=== PATIENT | female | born 1950 | race Caucasian/White ===

== ENCOUNTER → 2016-12-31 | Outpatient (CLI) | payer BC ==
--- NOTE | ~2016-12-31 | BD1 ---
[facility] A Service of [facility] & [facility] RADIOLOGY TEXT RESULTS PATIENT: CALEB CANADA LOCATION: [facility] : 52 UNIT #: [id number] AGE: [address]: Julianne Newton MD SEX: F ORDER DR: [id number] [address] [address] [id number] O MR#: [id number] Acc #: [id number] NAME: CALEB CANADA : 1950 SEX: F STUDY DATE/TIME: 12/31/2016 8:47 UNIT: [facility] ROOM: STUDY DESCRIPTION: Dexa Bone Dens 1+ Site Attending Physician: Julianne Newton M.D. Referring Physician: Julianne Newton M.D. Ordering Physician: Julianne Newton M.D. Primary Care Physician: Julianne Newton M.D. MEDICAL IMAGING REPORT This report is preliminary unless electronic signature is present. EXAM DXA scan, 12/31/2016. HISTORY Status post menopause with no hormone replacement therapy. Osteopenia. Hypertension with blood pressure medication for 30 years. Fracture of the left foot in the last 10 years. FINDINGS Bone mineral density in the lumbar spine from L1-L4 is 1.126 g/cm2 which is 0.4 standard deviations below the mean when compared to the young adult reference population which is within the range of normal. This is 1 standard deviation above the mean when compared to the age-matched population. Bone mineral density in the left femoral neck was 0.845 g/cm2 which is 1.4 standard deviations below the mean when compared to the young adult reference population which is characteristic of osteopenia. This is 0 standard deviations from the mean when compared to the age-matched population. Bone mineral density in the right femoral neck was 0.891 g/cm2 which is 1.1 standard deviations below the mean when compared to the young adult reference population which is characteristic of osteopenia. This is 0.3 standard deviations above the mean when compared to the age-matched population. IMPRESSION Bone mineral density in the lumbar spine within the range of normal and within the hips bilaterally characteristic of osteopenia. STS. [facility] A Service of [facility] & [facility] RADIOLOGY TEXT RESULTS PATIENT: CALEB CANADA LOCATION: [facility] : 52 UNIT #: [id number] AGE: [address]: Julianne Newton MD SEX: F ORDER DR: Dictated by... Brennon Cruz M.D. THIS IS AN ELECTRONICALLY VERIFIED REPORT Brennon Cruz M.D. at 12/31/2016 4:52 PM ROB/jeff TD: 12/31/2016 13:44 JOB #: [id number] MEDICAL IMAGING REPORT Page 1 of 1
--- NOTE | ~2016-12-31 | MY11 ---
[facility] A Service of [facility] RADIOLOGY TEXT RESULTS PATIENT: CALEB CANADA LOCATION: [facility] : 52 UNIT #: [id number] AGE: [address]: Julianne Newton MD SEX: F ORDER DR: [id number] [address] [address] [id number] O MR#: [id number] Acc #: [id number] NAME: CALEB CANADA : 1950 SEX: F STUDY DATE/TIME: 12/31/2016 9:20 UNIT: [facility] ROOM: STUDY DESCRIPTION: MY Mammogram Screening Dig Evan Attending Physician: Julianne Newton M.D. Referring Physician: Julianne Newton M.D. Ordering Physician: Julianne Newton M.D. Primary Care Physician: Julianne Newton M.D. MEDICAL IMAGING REPORT This report is preliminary unless electronic signature is present. EXAM Digital screening mammogram, 12/31/2016, [facility]. HISTORY 66-year-old woman, no risk elevation, annual screen. COMPARISON Mammograms 09/24/2011, 05/25/2013, 10/04/2014. FINDINGS Digital imaging of each breast was completed utilizing screening protocol. Review includes FDA-approved CAD device. Breast parenchyma is predominantly fatty replaced. There is, however, subareolar duct ectasia bilaterally. I see no mass. There are no suspicious microcalcifications and no focal architectural distortion. IMPRESSION Stable benign mammogram. Annual screening recommended. Patients over the age of 40 are entered into a reminder system with target due date for the next mammogram. A result letter will also be sent to the patient. BIRADS: 2 Benign finding. Dictated by... Rajesh Galindo M.D. THIS IS AN ELECTRONICALLY VERIFIED REPORT Rajesh Galindo M.D. at 12/31/2016 1:44 PM PK/kristine [facility] A Service of [facility] RADIOLOGY TEXT RESULTS PATIENT: CALEB CANADA LOCATION: [facility] : 52 UNIT #: [id number] AGE: [address]: Julianne Newton MD SEX: F ORDER DR: TD: 12/31/2016 13:22 JOB #: [id number] MEDICAL IMAGING REPORT Page 1 of 1
== END | disposition home or self-care (01) ==
LOC: SRAD 08:35
DX: Z12.31 Encounter for screening mammogram for malignant neoplasm of breast (principal); Z13.820 Encounter for screening for osteoporosis; Z78.0 Asymptomatic menopausal state
CPT/HCPCS: 77080; G0202